=== PATIENT | male | born 1975 | race Hispanic/Latino ===

== ENCOUNTER 2019-02-03 20:39 | Emergency (ER) | payer OTHER ==
[2019-02-03] MEDS ORDERED: DIAZEPAM 5 MG TABLET ONE (21:19)
[2019-02-03] MEDS ORDERED: KETOROLAC TROMETHAMINE 60 MG/2 ML VIAL ONE (21:19)
[2019-02-03] MEDS ORDERED: LIDOCAINE 5% TOPICAL PATCH TP ONE (21:19)
== END 2019-02-03 22:53 | disposition home or self-care (01) ==
LOC: EDH 20:39
DX: M54.16 Radiculopathy, lumbar region (principal); K21.9 Gastro-esophageal reflux disease without esophagitis; I10 Essential (primary) hypertension; Z72.0 Tobacco use
CPT/HCPCS: 96372; 99283; J1885

== ENCOUNTER 2020-04-02 08:53 | Emergency (ER) | payer OTHER ==
[2020-04-02] MEDS ORDERED: KETOROLAC TROMETHAMINE 60 MG/2 ML VIAL ONE (09:34)
== END 2020-04-02 09:56 | disposition home or self-care (01) ==
LOC: EDH 08:53 → EEVIPCON 08:53 → EDH 09:56
DX: S33.5XXA Sprain of ligaments of lumbar spine, initial encounter (principal); I10 Essential (primary) hypertension; K21.9 Gastro-esophageal reflux disease without esophagitis; Z72.0 Tobacco use; V49.09XA Driver injured in collision with other motor vehicles in nontraffic accident, initial encounter; Y93.89 Activity, other specified; Y92.89 Other specified places as the place of occurrence of the external cause; Y99.8 Other external cause status
CPT/HCPCS: 96372; 99283; J1885

== ENCOUNTER 2024-05-15 17:28 | Emergency (ER) | payer SELFPAY ==
[~2024-05-15] VITALS: Ht 167.6 cm; Wt 90.7 kg
[2024-05-15 17:38] VITALS: TEMP 98
--- NOTE | 2024-05-15 18:05 | ERN ---
General Chief Complaint: Low Back Pain/Injury Stated Complaint: LOW BACK PAIN Time Seen by MD: 17:31 Time Seen by Midlevel: 17:31 Source: patient History of Present Illness Initial Comments 48-year-old male who presents to the ED due to back pain onset six days. Patient reports he was lifting a chicken cage and felt back pain. Patient reports previous back injuries. Has been taking ibuprofen and applying Tylenol creams with no improvement. Denies any bladder or stool incontinence, any numbness, or further associated symptoms. PMHx HTN Allergies: Coded Allergies: No Known Drug Allergies (Verified Allergy, 10/14/12) Past Medical History Past Medical History: Hypertension Past Surgical History: None ROS Dictation Constitutional: Negative for fever,chills, and weight loss Eyes: Negative for injury, pain,redness, and discharge ENT: Negative for injury,pain or swelling Cardiovascular: Negative for chest pain, palpitations, and edema Respiratory: Negative for shortness of breath, cough, and wheezing, Abdomen/GI: Negative for abdominal pain, nausea, vomiting, diarrhea, and constipation Back: Positive back pain : Negative for painful urination, bleeding or discharge MS/Extremity: Negative for injury and deformity Skin: Negative for rash, and discoloration Neuro: Negative for headache, weakness, numbness, tingling, and seizure Psych: Negative for suicide ideation, homicidal ideation, and hallucinations Physical Exam Physical Exam Dictation General: awake, alert, no acute distress Head/Face: Normocephalic, atraumatic Eyes: normal conjunctiva ENT: oral mucosa moist Neck: Supple, normal range of motion Cardiovascular: RRR, normal S1/S2, Respiratory: CTAB, no respiratory distress Skin: Warm, dry, normal turgor, no rash Back: Lumbar tenderness MS/Extremity: Pulses equal, no cyanosis, neurovascular intact, FROM Neuro: COAx4, GCS 15, no neurological deficits, Psych: Normal behavior, mood, and affect normal Results EKG/XRAY/US/CT/MRI X-RAY Comment REASON: BACK PAIN ORDERING PHYSICIAN: MADALYN BAIRD PROCEDURE: LUMB 2 3VW - LUMBAR SPINE 2-3VWS LUMBAR SPINE 2-3VWS HISTORY: Back pain COMPARISON: None FINDINGS: 2 images of lumbar spine were obtained. Mild degenerative changes are seen. There is straightening of normal lordotic curvature which may be related to muscle spasm or positioning. No loss of vertebral height is seen. No fracture or dislocation is seen. Degenerative changes are seen. IMPRESSION: 1. No fracture is seen. MDM MDM: Differential diagnosis: Back sprain, muscle spasm, fracture Rationale: 48-year-old male who presents to the ED due to back pain onset six days. Patient reports he was lifting a chicken cage and felt back pain. Patient reports previous back injuries. Has been taking ibuprofen and applying Tylenol creams with no improvement. Denies any bladder or stool incontinence, any numbness, or further associated symptoms. PMHx HTN Lumbar x-rays obtained with no indications of a fracture seen, straightening of normal lordotic curvature consistent with muscle spasm. Patient was administered methocarbamol and ketorolac in the ED. Advised to follow up with PCP. Return to the ED if any worsening symptoms. Patient verbalized understanding. Stable for discharge. There are no social concerns with this patient. I independently interpreted the test that were performed, results were reviewed by me and considered findings on radiology if ordered. Medical management and examination interpretation discussions were had by me with other qualified healthcare professionals as indicated for the patient's care. ED Course Orders Procedure Category Date Status Time Methocarbamol PHA 05/15/24 Complete (Methocarbamol) 17:39 Lumbar Spine 2-3vws RAD 05/15/24 Resulted 17:39 Current Medications Medications (Trade) Dose Ordered Sig/Michelle Route PRN Reason Start Time Stop Time Status Last Admin Dose Admin Methocarbamol (methoCARBamol) 1,000 mg ONCE STAT PO 05/15/24 17:39 05/15/24 17:41 DC Vital Signs Date Time Temp Pulse Resp B/P (MAP) Pulse Ox O2 Delivery O2 Flow Rate FiO2 05/15/24 17:38 98.1 88 20 140/84 99 Room Air 0 DX & DISP Disposition: Discharge Departure Impression: Primary Impression: Low back sprain Additional Impression: Muscle spasm of back Condition: Stable Scripts Naproxen (Naproxen) 250 Mg Tablet 250 MG PO BID for 5 Days, #10 TAB Prov: MADALYN BAIRD 05/15/24 Methocarbamol (Methocarbamol) 500 Mg Tablet 1000 MG PO TID for 5 Days, #30 TAB Prov: MADALYN BAIRD 05/15/24 Additional Instructions: Discharge home. Rest. Follow up with primary care in 24 hours. Return to the ER for any acute changes or worsening symptoms. If any medications were prescribed take as directed. Okay to continue home medications unless otherwise discussed during your visit in the emergency room today. Patient was also advised to follow-up with primary care physician in 1 to 2 days for continued monitoring. Referrals: ANTHONY HOSKINS [facility]ANION (PCP) I participated in the following activities of this patient's care: For this patient encounter, I reviewed the PA or PERSONAL COMPANION documentation, treatment plan, and medical decision making. I did not have [id number] time with this patient. I will sign as the reviewing DrAllan And agree with the treatment plan and disposition. MADALYN BAIRD May 15, 2024 18:05
--- NOTE | 2024-05-15 18:22 | HMCIMG ---
LUMBAR SPINE 2-3VWS HISTORY: Back pain COMPARISON: None FINDINGS: 2 images of lumbar spine were obtained. Mild degenerative changes are seen. There is straightening of normal lordotic curvature which may be related to muscle spasm or positioning. No loss of vertebral height is seen. No fracture or dislocation is seen. Degenerative changes are seen. IMPRESSION: 1. No fracture is seen.
[2024-05-15 18:40] VITALS: BP 143/82; PULSE 89; RESP 18; O2SAT 99
[2024-05-15] MEDS ORDERED: METH-811 PO (18:41)
[2024-05-15] MEDS ORDERED: NAPR-1196 PO (18:41)
[2024-05-15] MEDS: ketOROlac 60 MG VIAL (30MG/ML) IM ONE (18:56)
[2024-05-15] MEDS: methoCARBamol 500 MG TABLET PO STA (18:56)
== END 2024-05-15 19:15 | disposition home or self-care (01) ==
LOC: EDH 17:28
DX: S33.9XXA Sprain of unspecified parts of lumbar spine and pelvis, initial encounter (principal); M62.830 Muscle spasm of back; I10 Essential (primary) hypertension; X50.0XXA Overexertion from strenuous movement or load, initial encounter; Y93.89 Activity, other specified; Y92.89 Other specified places as the place of occurrence of the external cause; Y99.8 Other external cause status
CPT/HCPCS: 99284; 72100; 96372; J1885